=== PATIENT | female | born 1995 | race Caucasian/White ===

== ENCOUNTER 2018-10-17 11:58 | Emergency (ER) | payer BC, OTHER ==
--- NOTE | 2018-10-17 14:36 | RAD REPORT ---
EXAM DESCRIPTION: RAD - Chest Pa And Lat (2 Views) - 10/17/2018 2:27 pm CLINICAL HISTORY: SOB Chest pain. COMPARISON: No comparisons FINDINGS: The lungs are clear. The heart is normal in size. No displaced fractures. Moderate dextros coliosis is present of the lower thoracic spine. IMPRESSION: No acute finding suspected. Moderate lower thoracic dextroscoliosis.
[2018-10-17 14:56] LABS: Absolute Lymphocytes (CBC) 2.2 K/uL (0.7-4.9); Absolute Monocytes 0.5 K/uL (0.1-1.3); Eosinophils % 0.5 % (0-4.4); Hematocrit 41.3 % (36.0-45.0); Lymphocytes % 25.1 % (15.3-44.8); MPV 7.6 fL (7.6-11.3); Monocytes % 5.1 % (3.3-12.3); RBC Red Blood Cell Count 4.57 M/uL (3.86-4.86)
[2018-10-17 15:21] LABS: Albumin 4.1 g/dL (3.4-5.0); Bilirubin Direct 0.2 mg/dL (0-0.2); Bilirubin Total 0.5 mg/dL (0.2-1.0); Potassium 3.9 mmol/L (3.5-5.1); Protein, Total 8.3 g/dL (6.4-8.2)
[2018-10-17 15:53] LABS: Urine Bacteria <20 /HPF (<20); Urine Culture Reflex Order NOT NEEDED; Urine Mucus 1+ /HPF (NONE SEEN); Urine RBC <5 /HPF (NONE SEEN)
[2018-10-17] MEDS ORDERED: NA CHLORIDE 0.9% 1,000 ML ONE (16:07)
[2018-10-17] MEDS ORDERED: KETOROLAC 30 MG/ML INJ ONE (16:07)
--- NOTE | 2018-10-17 16:34 | RAD REPORT ---
EXAM DESCRIPTION: CT - Abdomen Pelvis W Contrast - 10/17/2018 4:12 pm CLINICAL HISTORY: Abdominal pain, flank pain more so to the right COMPARISON: None. TECHNIQUE: Biphasic, helical CT imaging of the abdomen and pelvis was performed following 100 ml non -ionic IV contrast. No oral contrast administered. All CT scans are performed using dose optimization technique as appropriate and may include automated exposure control or mA/KV adjustment according to patient size. FINDINGS: No suspicious findings in the lung bases. The liver, spleen, and pancreas show no suspicious findings. Gallbladder and biliary tree are also wi thout suspicious finding. Symmetric renal function is seen with no hydronephrosis or suspicious renal mass. No pyelonephritis o r acute parenchymal process. No bladder abnormalities. No adrenal abnormalities. No gastric dilatation or wall thickening. No dilated large or small bowel. No appendicitis findings. Patient has a few small mesenteric lymph nodes in the right lower quadrant. No uterine abnormality. I n the left adnexa there is a 2.9 x 1.7 centimeter cystic structure. This is probably a physiologic ov latrice cyst. Structures somewhat more elongated. Right ovary is not well defined. Small amount of free fluid is present in the right adnexa. A leaking or hemorrhagic ovarian cyst would be possible. No fr ee air, pneumatosis or other free fluid collection. No hernia, mass or bulky lymphadenopathy. No suspicious bony findings. IMPRESSION: No appendicitis or acute GI process. No pyelonephritis or acute finding. Small amount of free fluid is seen in the right adnexa. A leaking or ruptured ovarian cyst would be a primary consideration. Cystic left adnexa masses believed to be an ovarian cyst. Focal left fallopian tube dilatation would be possible. Active PID or other infectious process is unlikely.
--- NOTE | 2018-10-17 16:44 | EDPHYS ---
Physician Documentation [facility] Name: Angie Shankar Age: 23 yrs Sex: Female : 1995 Arrival Date: 10/17/2018 Time: 11:59 Bed 20 Private MD: ED Physician Luciano Reaves HPI: 10/17 15:00 This 23 yrs old Female presents to ER via Ambulatory with complaints of pm1 Dizziness, Back Pain, Shortness Of Breath, General Weakness. 15:00 The patient presents with abdominal pain suprapubic area. Onset: The symptoms/episode pm1 began/occurred 1 week(s) ago. The symptoms do not radiate. Associated signs and symptoms: Pertinent positives: shortness of breath, bilateral flank pain, dizziness. The symptoms are described as sharp. Modifying factors: The symptoms are alleviated by nothing, the symptoms are aggravated by nothing. Severity of pain: in the emergency department the pain is actually worse. The patient has not experienced similar symptoms in the past. The patient has been recently seen at an urgent care, just prior to arrival. Historical: - Allergies: 12:06 Amoxicillin; sv - PMHx: 12:06 Pyelonephritis; Pneumonia; sv - PSHx: 12:06 None; sv ROS: 15:00 Eyes: Negative for injury, pain, redness, and discharge, ENT: Negative for injury, pm1 pain, and discharge, Neck: Negative for injury, pain, and swelling, Cardiovascular: Negative for chest pain, palpitations, and edema. 15:00 : Negative for injury, bleeding, discharge, and swelling, MS/Extremity: Negative for injury and deformity, Skin: Negative for injury, rash, and discoloration, Neuro: Negative for headache, weakness, numbness, tingling, and seizure. 15:00 Constitutional: Positive for malaise, Negative for body aches, fever. 15:00 Respiratory: Positive for shortness of breath, Negative for cough, sputum production, wheezing. 15:00 Abdomen/GI: Positive for abdominal pain, of the suprapubic area, Negative for nausea, vomiting, and diarrhea. 15:00 Back: Positive for of the mid back area, pain. Exam: 15:00 Constitutional: This is a well developed, well nourished patient who is awake, alert, pm1 and in no acute distress. Head/Face: Normocephalic, atraumatic. Eyes: Pupils equal round and reactive to light, extra-ocular motions intact. Lids and lashes normal. Conjunctiva and sclera are non-icteric and not injected. Cornea within normal limits. Periorbital areas with no swelling, redness, or edema. ENT: Nares patent. No nasal discharge, no septal abnormalities noted. Tympanic membranes are normal and external auditory canals are clear. Oropharynx with no redness, swelling, or masses, exudates, or evidence of obstruction, uvula midline. Mucous membranes moist. Neck: Trachea midline, no thyromegaly or masses palpated, and no cervical lymphadenopathy. Supple, full range of motion without nuchal rigidity, or vertebral point tenderness. No Meningismus. Chest/axilla: Normal chest wall appearance and motion. Nontender with no deformity. No lesions are appreciated. Cardiovascular: Regular rate and rhythm with a normal S1 and S2. No gallops, murmurs, or rubs. Normal PMI, no JVD. No pulse deficits. Respiratory: Lungs have equal breath sounds bilaterally, clear to auscultation and percussion. No rales, rhonchi or wheezes noted. No increased work of breathing, no retractions or nasal flaring. 15:00 Back: No spinal tenderness. No costovertebral tenderness. Full range of motion. Skin: Warm, dry with normal turgor. Normal color with no rashes, no lesions, and no evidence of cellulitis. MS/ Extremity: Pulses equal, no cyanosis. Neurovascular intact. Full, normal range of motion. 15:00 Abdomen/GI: Inspection: abdomen appears normal, Bowel sounds: normal, Palpation: soft, mild abdominal tenderness, in the suprapubic area, mass, is not appreciated, rebound tenderness, is not appreciated. 15:00 Neuro: Orientation: is normal, Motor: is normal, moves all fours. Vital Signs: 12:06 BP 113 / 78; Pulse 84; Resp 18; Temp 98.6(O); Pulse Ox 99% ; Weight 65.77 kg; Height 5 sv ft. 6 in. (167.64 cm); Pain 6/10; 14:00 BP 106 / 72; Pulse 66; Resp 18; Pulse Ox 99% on R/A; Pain 5/10; em 15:00 BP 102 / 60; Pulse 75; Resp 18; Pulse Ox 100% on R/A; em 16:00 BP 107 / 68; Pulse 68; Resp 18; Pulse Ox 99% ; em 12:06 Body Mass Index 23.40 (65.77 kg, 167.64 cm) sv MDM: 13:54 Patient medically screened. pm1 14:02 Data reviewed: vital signs. Data interpreted: Pulse oximetry: on room air is 99 %. pm1 Interpretation: normal. 16:42 Counseling: I had a detailed discussion with the patient and/or guardian regarding: the pm1 historical points, exam findings, and any diagnostic results supporting the discharge/admit diagnosis, lab results, radiology results, the need for outpatient follow up, to return to the emergency department if symptoms worsen or persist or if there are any questions or concerns that arise at home. 10/17 14:04 Order name: Basic Metabolic Panel pm1 10/17 14:04 Order name: CBC with Diff pm1 10/17 14:04 Order name: Creatinine for Radiology; Complete Time: 15:24 pm1 10/17 14:04 Order name: Hepatic Function; Complete Time: 15:24 pm1 10/17 14:04 Order name: Lipase; Complete Time: 15:24 pm1 10/17 14:04 Order name: Procalcitonin; Complete Time: 15:41 pm1 10/17 14:04 Order name: Chest Pa And Lat (2 Views) XRAY; Complete Time: 15:24 pm1 10/17 14:04 Order name: Urine Microscopic Only; Complete Time: 16:11 pm1 10/17 14:05 Order name: Basic Metabolic Panel; Complete Time: 15:24 EDMS 10/17 14:05 Order name: CBC with Automated Diff; Complete Time: 15:24 EDMS 10/17 15:30 Order name: Urine Dipstick--Ancillary (enter results) eb 10/17 15:30 Order name: Urine --Ancillary (enter results) eb 10/17 15:53 Order name: CT Abd/Pelvis - W/Contrast: IV contrast only; Complete Time: 16:41 pm1 10/17 14:04 Order name: IV Saline Lock; Complete Time: 15:18 pm1 10/17 14:04 Order name: Labs collected and sent; Complete Time: 15:18 pm1 10/17 14:04 Order name: Urine Dipstick-Ancillary (obtain specimen); Complete Time: 15:18 pm1 10/17 14:04 Order name: Urine Test (obtain specimen); Complete Time: 15:18 pm1 Administered Medications: 16:00 Drug: NS 0.9% 1000 ml Route: IV; Rate: 1000 ml; Site: right forearm; em 17:09 Follow up: IV Status: Completed infusion; IV Intake: 1000ml em 17:09 Not Given (Patient Refused): TORadol 30 mg IVP once em Disposition: 10/17/18 16:43 Discharged to Home. Impression: Other and unspecified ovarian cysts. - Condition is Stable. - Discharge Instructions: Ovarian Cyst. - Prescriptions for Tylenol- Codeine #3 300-30 mg Oral Tablet - take 2 tablets by ORAL route every 6 hours As needed; 20 tablet. Naprosyn 500 mg Oral Tablet - take 1 tablet by ORAL route 2 times per day take with food; 30 tablet. - Work release form, Medication Reconciliation Form, Thank You Letter, Prescription Opioid Use form. - Follow up: Emergency Department; When: As needed; Reason: Worsening of condition. Follow up: Private Physician; When: 2 - 3 days; Reason: Recheck today's complaints, Continuance of care, Re-evaluation by your physician. - Problem is new. - Symptoms have improved. Addendum: 10/20/2018 07:07 Co-signature as Attending Physician, Luciano Reaves MD I agree with the assessment and k dr plan of care. Signatures: Dispatcher [employer] Lavinia Snow RN RN sv Rittger, Kevin, MD MD [facility] Porfirio Rick, POWERPLANT OPERATOR POWERPLANT OPERATOR em [place] Celeste, LIBRA JR. SYSTEMS ADMINISTRATOR pm1 Corrections: (The following items were deleted from the chart) 10/17 14:02 14:02 Counseling: I had a detailed discussion with the patient and/or guardian pm1 regarding: the historical points, exam findings, and any diagnostic results supporting the discharge/admit diagnosis, lab results, radiology results, the need for outpatient follow up, to return to the emergency department if symptoms worsen or persist or if there are any questions or concerns that arise at home, pm1 17:17 16:43 10/17/2018 16:43 Discharged to Home. Impression: Other and unspecified ovarian em cysts. Condition is Stable. Forms are Medication Reconciliation Form, Thank You Letter, Antibiotic Education, Prescription Opioid Use. Follow up: Emergency Department; When: As needed; Reason: Worsening of condition. Follow up: Private Physician; When: 2 - 3 days; Reason: Recheck today's complaints, Continuance of care, Re-evaluation by your physician. Problem is new. Symptoms have improved. pm1
--- NOTE | 2018-10-17 16:44 | ER ---
Nurse's Notes [facility] Name: Angie Shankar Age: 23 yrs Sex: Female : 1995 Arrival Date: 10/17/2018 Time: 11:59 Bed 20 Private MD: Diagnosis: Other and unspecified ovarian cysts Presentation: 10/17 12:04 Presenting complaint: Patient states: middle back pain with radiation to the right sv anterior side, nausea, SOB (started this am), fatigue, generalized weakness x 1 week. Seen at [facility] urgent care and sent over here, UA negative. Transition of care: patient was not received from another setting of care. 12:04 Method Of Arrival: Ambulatory sv 12:05 Onset of symptoms was October 10, 2018. Care prior to arrival: None. sv 12:05 Acuity: ANGELIA 3 sv Triage Assessment: 12:07 General: Appears in no apparent distress. uncomfortable, well developed, Behavior is sv calm, cooperative, appropriate for age. Pain: Complains of pain in mid back area Pain radiates to left upper quadrant Pain currently is 6 out of 10 on a pain scale. Neuro: Level of Consciousness is awake, alert, obeys commands, Oriented to person, place, time, situation, Gait is steady, Speech is normal. Neuro: Reports weakness. Respiratory: Reports shortness of breath on exertion Respiratory effort is even, unlabored, Respiratory pattern is regular, symmetrical. Historical: - Allergies: 12:06 Amoxicillin; sv - PMHx: 12:06 Pyelonephritis; Pneumonia; sv - PSHx: 12:06 None; sv Screenin:50 Abuse screen: Denies threats or abuse. Nutritional screening: No deficits noted. em Tuberculosis screening: No symptoms or risk factors identified. Fall Risk None identified. Assessment: 13:50 General: Appears in no apparent distress. comfortable, Behavior is calm, cooperative, em Denies fever. Pain: Complains of pain in mid back area Pain currently is 6 out of 10 on a pain scale. Pain began about 1 week ago. Neuro: Level of Consciousness is awake, alert, obeys commands, Oriented to person, place, time, situation, [employer] Financial Developer are equal bilaterally Moves all extremities. Gait is steady, Speech is normal, Facial symmetry appears normal, Pupils are PERRLA. Cardiovascular: Capillary refill < 3 seconds Patient's skin is warm and dry. Respiratory: Reports shortness of breath at rest Airway is patent Respiratory effort is even, unlabored, Respiratory pattern is regular, symmetrical, Breath sounds are clear bilaterally. Denies cough. GI: Abdomen is flat, Patient currently denies abdominal pain. : Denies burning with urination. Derm: Skin is intact, is healthy with good turgor, Skin is pink, warm \T\ dry. Musculoskeletal: Range of motion: intact in all extremities. 14:05 Reassessment: I agree with previous assessment. hb 15:00 Reassessment: Patient appears in no apparent distress at this time. Patient and/or em family updated on plan of care and expected duration. Pain level reassessed. Patient is alert, oriented x 3, equal unlabored respirations, skin warm/dry/pink. 16:00 Reassessment: Patient appears in no apparent distress at this time. Patient and/or em family updated on plan of care and expected duration. Pain level reassessed. Patient is alert, oriented x 3, equal unlabored respirations, skin warm/dry/pink. currently refuses pain medication, provider notified Patient states feeling better. Patient states symptoms have improved. Vital Signs: 12:06 BP 113 / 78; Pulse 84; Resp 18; Temp 98.6(O); Pulse Ox 99% ; Weight 65.77 kg; Height 5 sv ft. 6 in. (167.64 cm); Pain 6/10; 14:00 BP 106 / 72; Pulse 66; Resp 18; Pulse Ox 99% on R/A; Pain 5/10; em 15:00 BP 102 / 60; Pulse 75; Resp 18; Pulse Ox 100% on R/A; em 16:00 BP 107 / 68; Pulse 68; Resp 18; Pulse Ox 99% ; em 12:06 Body Mass Index 23.40 (65.77 kg, 167.64 cm) sv ED Course: 11:00 Arm band placed on. em 11:59 Patient arrived in ED. as 12:06 Triage completed. sv 12:15 Patient moved to radiology via wheelchair. jb2 13:31 Porfirio Rick LVN is Primary Nurse. em 13:53 [place] Celeste NP is PHCP. pm1 13:53 Luciano Reaves MD is Attending Physician. pm1 14:00 Patient has correct armband on for positive identification. Placed in gown. Bed in low em position. Call light in reach. Side rails up X2. Pulse ox on. NIBP on. 14:00 Initial lab(s) drawn, by me, sent to lab. Inserted saline lock: 20 gauge in right em antecubital area, using aseptic technique. Blood collected. 14:25 X-ray completed. Patient tolerated procedure well. Patient moved back from radiology. jb2 14:26 Chest Pa And Lat (2 Views) XRAY In Process Unspecified. EDMS 16:[address] via wheelchair. nj 16:13 CT Abd/Pelvis - W/Contrast: IV contrast only In Process Unspecified. EDMS 16:14 CT completed. Patient tolerated procedure well. Patient moved back from CT. vm2 17:15 No provider procedures requiring assistance completed. IV discontinued, intact, em bleeding controlled, No redness/swelling at site. Pressure dressing applied. Administered Medications: 16:00 Drug: NS 0.9% 1000 ml Route: IV; Rate: 1000 ml; Site: right forearm; em 17:09 Follow up: IV Status: Completed infusion; IV Intake: 1000ml em 17:09 Not Given (Patient Refused): TORadol 30 mg IVP once em Intake: 17:09 IV: 1000ml; Total: 1000ml. em Outcome: 16:43 Discharge ordered by MD. pm1 17:15 Discharged to home ambulatory, with family. em 17:15 Condition: good 17:15 Discharge instructions given to patient, family, Instructed on discharge instructions, follow up and referral plans. medication usage, Demonstrated understanding of instructions, follow-up care, medications, Prescriptions given X 2. 17:17 Patient left the ED. em Signatures: Dispatcher [employer] Lavinia Snow RN RN sv Buechter, Jesse jb2 Porfirio Rick, ELIZABETH BICYCLE REPAIRER em Keila Mercado Patrick, ADJUSTMENT EXAMINER ADJUSTMENT EXAMINER pm1 Nano Li RN RN hb Jordan, Nathan nj McGuire, Victoria 2 Corrections: (The following items were deleted from the chart) 12:07 12:06 BP 113 / 78; Pulse 84bpm; Resp 18bpm; Pulse Ox 99%; 65.77 kg; Height 5 ft. 6 in.; sv BMI: 23.4; Pain 6/10; sv
[2018-10-17 20:10] LABS: Urine Blood NEGATIVE (NEG); Urine Glucose NEGATIVE (NEG); Urine Protein NEGATIVE (NEG)
== END 2018-10-17 17:17 | disposition home or self-care (01) ==
LOC: ER 11:58
DX: N83.299 Other ovarian cyst, unspecified side (principal); Z88.1 Allergy status to other antibiotic agents
CPT/HCPCS: 36415; 71046; 74177; 80048; 80076; 81003; 81015; 81025; 83690; 84145; 85025; 96360; 99284; J7030; Q9967